=== PATIENT | female | born 1980 | race Asian ===

== ENCOUNTER 2020-02-17 19:44 | Emergency (ER) | payer OTHER ==
[~2020-02-17] VITALS: Ht 157.5 cm; Wt 76.4 kg
[2020-02-17 19:45] VITALS: TEMP 99.2
[2020-02-17 21:09] VITALS: BP 122/76; PULSE 101
[2020-02-17] MEDS ORDERED: NORCO 325 MG-51 TAB PO (21:17)
== END 2020-02-17 21:23 | disposition home or self-care (01) ==
LOC: COL.ER 19:44
DX: S93.601A Unspecified sprain of right foot, initial encounter (principal); S93.401A Sprain of unspecified ligament of right ankle, initial encounter; X50.1XXA Overexertion from prolonged static or awkward postures, initial encounter

== ENCOUNTER 2021-07-01 08:50 | Emergency (ER) | payer OTHER ==
[~2021-07-01] VITALS: Ht 157.5 cm; Wt 68.2 kg
[~2021-07-01 08:50] MED LIST: NORCO 325 MG-51 TAB PO
[2021-07-01 09:18] VITALS: TEMP 98.5
[2021-07-01 09:55] LABS: COLLECTION METHOD CLEAN CATCH
[2021-07-01 10:02] LABS: PH 7 (5-8); SQUAMOUS EPITHELIAL None Seen /hpf; URINE APPEARANCE Clear; URINE BACTERIA None Seen /hpf; URINE BILIRUBIN Negative (NEGATIVE); URINE BLOOD 1+ (NEGATIVE); URINE COLOR Colorless; URINE GLUCOSE Negative (NEGATIVE); URINE KETONE Negative (NEGATIVE); URINE LEUKOCYTE ESTERASE Negative (NEGATIVE); URINE NITRATE Negative (NEGATIVE); URINE PROTEIN(semi-quant) Negative (NEGATIVE); URINE RBC None Seen /hpf; URINE UROBILINOGEN Negative (NEGATIVE)
[2021-07-01 10:30] VITALS: BP 127/80; PULSE 85
== END 2021-07-01 10:34 | disposition home or self-care (01) ==
LOC: COL.ER 08:50
PROVIDERS: Emergency Medicine
DX: S06.0X0A Concussion without loss of consciousness, initial encounter (principal); J45.909 Unspecified asthma, uncomplicated; V43.52XA Car driver injured in collision with other type car in traffic accident, initial encounter